=== PATIENT | male | born 1985 | race Caucasian/White ===

== ENCOUNTER 2017-12-24 11:03 | Emergency (ER) | payer MEDICAID ==
[2017-12-24] MEDS: FLUORESCEIN STRIP RIGHT EYE (16:04)
[2017-12-24] MEDS: TETRACAINE 0.5% 4 ML OPH RIGHT EYE (16:04)
== END 2017-12-24 16:49 | disposition home or self-care (01) ==
LOC: FTE 11:03
DX: T15.91XA Foreign body on external eye, part unspecified, right eye, initial encounter (principal); F17.210 Nicotine dependence, cigarettes, uncomplicated; X58.XXXA Exposure to other specified factors, initial encounter; Y92.9 Unspecified place or not applicable
CPT/HCPCS: 99283; Z7502